=== PATIENT | male | born 1980 | race Caucasian/White ===

== ENCOUNTER 2017-05-02 23:43 | Emergency (ER) | payer OTHER ==
[2017-05-02 23:54] VITALS: BP 118/80; PULSE 75; RESP 18; TEMP 98.7
[2017-05-03] MEDS ORDERED: PENICILLIN VK 500MG STARTER 4 TAB BTL PO STA (00:21)
[2017-05-03] MEDS ORDERED: ACET/COD 300 MG/30 MG STARTER PACK 6 TAB BTL PO STA (00:21)
--- NOTE | 2017-05-03 00:22 | ED ---
General Adult HPI - General Chief complaint: Dental/Oral Stated complaint: face pain Time Seen by Provider: 05/03/17 00:03 Source: patient, RN notes reviewed Mode of arrival: ambulatory Limitations: no limitations - History of Present Illness Initial comments: Patient is a pleasant 36-year-old male presenting to the emergency Department with complaints of dental pain. Patient has chronic dental problems. Patient was cleaning his tooth with a PIC the other day and felt a piece of it chipped off. Patient has had increased pain since that time. Patient has not been sleeping well. Discomfort is right lower tooth and discomfort does radiate towards the right side of the face. No swelling. No fever. Patient has an appointment to see the dentist on . - Related Data Previous Rx's Medication Instructions Recorded Acetaminophen-Codeine 300-30mg 1 each PO Q4H PRN #10 tablet 05/03/17 [Tylenol #3] Penicillin V Potassium [Pen Vee K] 500 mg PO QID #40 tablet 05/03/17 Allergies Allergy/AdvReac Type Severity Reaction Status Date / Time No Known Allergies Allergy Verified 05/02/17 23:54 Review of Systems ROS Statement: Those systems with pertinent positive or pertinent negative responses have been documented in the HPI. ROS Other: All systems not noted in ROS Statement are negative. Constitutional: Denies: fever Eyes: Denies: eye pain ENT: Reports: dental pain Respiratory: Denies: cough Cardiovascular: Denies: chest pain Endocrine: Denies: fatigue Gastrointestinal: Denies: abdominal pain Genitourinary: Denies: dysuria Musculoskeletal: Denies: back pain Skin: Denies: rash Neurological: Denies: weakness Past Medical History Past Medical History: No Reported History History of Any Multi-Drug Resistant Organisms: None Reported Past Surgical History: No Surgical Hx Reported Past Psychological History: No Psychological Hx Reported Smoking Status: Current every day smoker Past Alcohol Use History: None Reported Past Drug Use History: Marijuana General Exam Limitations: no limitations General appearance: alert, in no apparent distress Head exam: Present: atraumatic Eye exam: Present: normal appearance, PERRL Expanded Teeth exam: Present: dental caries, other (Poor dentition. Right lower molar with decay and tenderness. No swelling.). Absent: gingival enlargement Neck exam: Present: normal inspection Respiratory exam: Present: normal lung sounds bilaterally Cardiovascular Exam: Present: regular rate, normal rhythm Extremities exam: Present: normal inspection Neurological exam: Present: alert Psychiatric exam: Present: normal affect, normal mood Skin exam: Present: normal color Course Vital Signs 05/02/17 23:50 Temperature 98.7 F Pulse Rate 75 Respiratory 18 Rate Blood Pressure 118/80 O2 Sat by Pulse 97 Oximetry Disposition Clinical Impression: Toothache Disposition: HOME SELF-CARE Condition: Stable Instructions: Toothache (ED) Additional Instructions: Please follow-up with the dentist Friday if possible, no later than scheduled appointment on . Return for fever, increased pain, increased swelling, worsening or changing symptoms or other concerns. Prescriptions: Acetaminophen-Codeine 300-30mg [Tylenol #3] 1 each PO Q4H PRN #10 tablet PRN Reason: Pain Penicillin V Potassium [Pen Vee K] 500 mg PO QID #40 tablet Referrals: Masoud Melvin MD [REFERRING] - 1-2 days Time of Disposition: 00:21
== END 2017-05-03 00:37 | disposition home or self-care (01) ==
LOC: EC 23:43
DX: K02.9 Dental caries, unspecified (principal); F17.200 Nicotine dependence, unspecified, uncomplicated
CPT/HCPCS: 99283